=== PATIENT | female | born 1965 | race Caucasian/White ===

== ENCOUNTER 2016-08-10 16:08 | Emergency (ER) | payer MEDICAID, OTHER ==
[~2016-08-10] VITALS: Ht 157.5 cm; Wt 76.0 kg
[2016-08-10 16:10] VITALS: Ht 157.5 cm; Wt 76.0 kg
[2016-08-10] MEDS ORDERED: KETOROLAC 30 MG INJ IM STA (16:39)
--- NOTE | 2016-08-10 17:19 | RADRPT ---
PROCEDURE: XR Left Tibia and Fibula. CLINICAL INDICATION: Left lower leg pain. TECHNIQUE: Two views. Frontal and lateral. COMPARISON: No prior studies are available for comparison. FINDINGS: There is no fracture or dislocation. There is a region of soft tissue swelling or soft tissue mass anteriorly measuring 1.9 x 9.4 cm in A P and cranial caudal dimensions. Articular surfaces are intact. There is no lytic or blastic lesion. There is no radiopaque foreign body. IMPRESSION: 1. Anterior soft tissue swelling or mass measuring 1.9 x 9.4 cm. Clinical correlation advised. Co rrelation with MRI should be considered. 2. Otherwise unremarkable study. RPTAT: QQ .Gil Tsang MD, MD Date Time Electronically viewed and signed by .Gil Tsang MD, on 08/10/2016 17:19 .R/
[2016-08-10] MEDS ORDERED: ACET500C5 PO (17:28)
[2016-08-10 17:30] VITALS: BP 135/74; PULSE 76
--- NOTE | 2016-08-10 17:34 | ERD ---
ER Documentation Chief Complaint Date/Time DATE: 08/10/16 TIME: 17:29 Chief Complaint lle pain s/p hitting on car door HPI Patient is a 50-year-old female who presents with left leg pain after sustaining trauma today. She states that the car door slammed on her left leg. She denies pain in her knees or ankles or hips. She is able to ambulate without difficulty. She states that she has pain in her left leg. She has not had fever or chills. She did not hit her head, blackout or lose consciousness. She denies headache or dizziness. She denies blurry vision. She denies ear pain or difficulty hearing. Denies cough, shortness of breath or difficulty breathing. Denies chest pain. No other complaints. ROS All systems reviewed and are negative except as per history of present illness. Medications Home Meds Active Scripts Acetaminophen* (Tylophen*) 500 Mg Capsule, 1 CAP PO Q6H Y for PAIN AND OR ELEVATED TEMP, #20 CAP Prov:KELLY ALEJANDRE PA-C 08/10/16 PMhx/Soc Medical and Surgical Hx: pt denies Medical Hx, pt denies Surgical Hx History of Surgery: No Anesthesia Reaction: No Hx Neurological Disorder: No Hx Respiratory Disorders: No Hx Cardiac Disorders: No Hx Psychiatric Problems: No Hx Miscellaneous Medical Probl: No Hx Alcohol Use: No Hx Substance Use: No Hx Tobacco Use: No Physical Exam Vitals Vital Signs Date Time Temp Pulse Resp B/P Pulse Ox O2 Delivery O2 Flow Rate FiO2 08/10/16 16:10 72 20 174/93 98 Physical Exam GENERAL: Well-developed, well-nourished female. Appears in mild distress. HEAD: Normocephalic, atraumatic. LUNG: Clear to auscultation bilaterally. No rhonchi, wheezing, rales or coarse breath sounds. HEART: Regular rate and rhythm. No murmurs, rubs or gallops. BACK: No midline tenderness. ORTHO: 5 inch swelling and ecchymosis on the lateral left leg. Slight tenderness. No erythema or drainage no open wounds or lacerations. She is not tender in her knees, hips or ankle. non tender to malleolus. no proximal fibula pain. There is no swelling, ecchymosis or erythema in her knee, ankle or hip. Range of motion intact. Sensation intact. No unilateral leg swelling. Negative Homans sign. Extremities: Equal pulses bilaterally. No peripheral clubbing, cyanosis or edema. No unilateral leg swelling. NEUROLOGIC: Alert and oriented. Moving all four extremities. 5/5 strength in all extremities. Normal speech. Steady gait. SKIN: Normal color. Warm and dry. No rashes or lesions. Capillary refill < 2 seconds Results 24 hrs Current Medications Medications (Trade) Dose Ordered Sig/Rosa Route PRN Reason Start Time Stop Time Status Last Admin Dose Admin Ketorolac Tromethamine (Toradol) 30 mg ONCE STAT IM 08/10/16 16:39 08/10/16 16:42 DC 08/10/16 16:54 Procedures/MDM ER COURSE: I kept the patient and/or family informed of laboratory and diagnostic imaging results throughout the emergency room course. EKG, MONITORS, & DIAGNOSTIC IMAGING: [place] [id number] Radiology Main Line: [phone] DIAGNOSTIC IMAGING REPORT Patient: RAFAL URBAN : 1965 Age: 50 Sex: F MR #: [id number] DOS: 08/10/16 1639 Ordering MD: KELLY ALEJANDRE PA-C Location: [facility] Room/Bed: PROCEDURE: XR Left Tibia and Fibula. CLINICAL INDICATION: Left lower leg pain. TECHNIQUE: Two views. Frontal and lateral. COMPARISON: No prior studies are available for comparison. FINDINGS: There is no fracture or dislocation. There is a region of soft tissue swelling or soft tissue mass anteriorly measuring 1.9 x 9.4 cm in AP and cranial caudal dimensions. Articular surfaces are intact. There is no lytic or blastic lesion. There is no radiopaque foreign body. IMPRESSION: 1. Anterior soft tissue swelling or mass measuring 1.9 x 9.4 cm. Clinical correlation advised. Correlation with MRI should be considered. 2. Otherwise unremarkable study. RPTAT: QQ .Gil Tsang MD, MD Date Time Electronically viewed and signed by .Gil Tsang MD, MD on 08/10/2016 17:19 .R/ CC: KELLY ALEJANDRE PA-C PROCEDURES: Toradol 30 mg. Patient tolerated medication well with no adverse reaction. Patient seen improvement in symptoms Fabiano wrap Assessment: Neurovascularly intact post fabiano wrap placement with good fit. Urine test was negative. MEDICAL DECISION MAKING: This is a 50-year-old female who presents with left leg pain after sustaining an injury of where the car door slammed onto her left leg. Vital signs were reviewed. Patient is afebrile. Patient is not hypoxic. Patient is not toxic or ill-appearing. Her temperature at intake was 174/93. However after sitting in the waiting room, her blood pressure decreased to 135/74. I have low suspicion for hypertensive urgency, emergency or endorgan damage. Low suspicion for intracranial hemorrhage, meningitis, intracranial mass, concussion, temporal arteritis, stroke, elevated intracranial pressure, seizure. Her left leg pain is likely a contusion. Low suspicion for dislocation, fracture, septic joint, compartment syndrome, osteomyelitis, avascular necrosis, DVT, Achilles tendon rupture, cellulitis. At this time, unable to rule out any tendon and ligament injuries. Low suspicion for dislocation, fracture, septic joint, compartment syndrome, osteomyelitis, cellulitis, avascular necrosis, neurological injury, vascular injury, tendon laceration. I have low suspicion for any ankle, knee or hip injury as she is not tender and is able to ambulate. She does not state that she has pain at those areas. DISCHARGE: At this time, patient is stable for discharge and outpatient management with no new complaints during the ER course. Patient was sent home with Tylenol. Patient will be discharged home with instructions to recheck for new or worsening symptoms such as fever, nausea, weakness, LOC and to follow up with primary care in the next 1-2 days. Patient was advised to return to the ER for any new or worsening symptoms. Plan was discussed and patient and/or family understands and agrees. Home instructions were given. Departure Diagnosis: Primary Impression: Pain of left leg Condition: Stable Patient Instructions: Contusions (Bruises) Additional Instructions: Llame al doctor NANCYANA y jose a trice RADHA PARA DENTRO DE 1-2 STRINGER.Dgale a la secretaria que nosotros le instruimos hacer esta radha.Avise o llame si mo condicin se empeora antes de la radha. Regresa aqui si peor o no mejor. KELLY ALEJANDRE PA-C Aug 10, 2016 17:34
== END 2016-08-10 18:15 | disposition home or self-care (01) ==
LOC: FTE 16:08
DX: S89.92XA Unspecified injury of left lower leg, initial encounter (principal); W23.1XXA Caught, crushed, jammed, or pinched between stationary objects, initial encounter; Y92.9 Unspecified place or not applicable
CPT/HCPCS: 73590; 96372; J1885; Z7502